=== PATIENT | male | born 1985 | race Caucasian/White ===

== ENCOUNTER 2022-02-14 21:04 | Emergency (ER) | payer OTHER, SELFPAY ==
[2022-02-14 21:04] VITALS: BP 156/113; PULSE 76; RESP 16; TEMP 36.3; O2SAT 97; BMI 32.1
--- NOTE | 2022-02-14 21:17 | CT_ITS ---
PROCEDURE INFORMATION: Exam: CT Lumbar Spine With Contrast Exam date and time: 02/14/2022 9:40 PM Age: 37 years old Clinical indication: Low back pain TECHNIQUE: Imaging protocol: Computed tomography of the lumbar spine with contrast. Radiation optimization: All CT scans at this facility use at least one of these dose optimization techniques: automated exposure control; mA and/or kV adjustment per patient size (includes targeted exams where dose is matched to clinical indication); or iterative reconstruction. Contrast material: ISOVUE; Contrast volume: 70 ml; Contrast route: IV; COMPARISON: CT THORACIC SPINE W CON 02/14/2022 9:35 PM FINDINGS: Bones/joints: At T11-12, a right paracentral broad-based disc and osteophyte complex measuring approximately 13 mm in anterior to posterior and 18 mm in transverse dimensions results in central spinal canal stenosis and right neural foraminal canal stenosis. No evidence of acute displaced cortical disruption or spondylolisthesis. Mild diffuse degenerative spondylosis, rotoscoliosis and facet arthropathy. Circumferential disc bulge, ligamentum flavum hypertrophy and degenerative facet arthropathy result in central spinal canal stenosis at L4-L5. Posterolateral disc and osteophyte complex and degenerative facet arthropathy result in bilateral foraminal stenosis at L5-S1. Mild anterior wedging of some of the lower thoracic vertebral bodies without evidence of fracture. Bilateral pars defects at L5-S1 without spondylolisthesis. Diaphragm: Small sliding hiatal hernia. Pancreas: Atrophic change of the otherwise unremarkable pancreas. Spleen: Punctate calcified granulomas within the spleen. Stomach and bowel: Diverticulosis of the sigmoid colon. No surrounding inflammation or fluid. Appendix: The appendix appears normal. Soft tissues: Unremarkable. Other findings: No pathologic enhancing lesion. IMPRESSION: 1. At T11-12, a right paracentral broad-based disc and osteophyte complex measuring approximately 13 mm in anterior to posterior and 18 mm in transverse dimensions results in central spinal canal stenosis and right neural foraminal canal stenosis. 2. Bilateral pars defects at L5-S1 without spondylolisthesis. These appear chronic. 3. Small sliding hiatal hernia. 4. Mild diffuse degenerative disc disease, rotoscoliosis and facet arthropathy. 5. Atrophic change of the otherwise unremarkable pancreas. 6. Punctate calcified granulomas within the spleen. 7. Diverticulosis of the sigmoid colon. No surrounding inflammation or fluid. 8. The appendix appears normal. 9. No pathologic enhancing lesion. 10. Circumferential disc bulge, ligamentum flavum hypertrophy and degenerative facet arthropathy result in central spinal canal stenosis at L4-L5. 11. Posterolateral disc and osteophyte complex and degenerative facet arthropathy result in bilateral foraminal stenosis at L5-S1. 12. Mild anterior wedging of some of the lower thoracic vertebral bodies without evidence of fracture.
--- NOTE | 2022-02-14 21:17 | CT_ITS ---
PROCEDURE INFORMATION: Exam: CT Thoracic Spine With Contrast Exam date and time: 02/14/2022 9:35 PM Age: 37 years old Clinical indication: Pain in thoracic spine; Other: Burning sensation TECHNIQUE: Imaging protocol: Computed tomography of the thoracic spine with contrast. Radiation optimization: All CT scans at this facility use at least one of these dose optimization techniques: automated exposure control; mA and/or kV adjustment per patient size (includes targeted exams where dose is matched to clinical indication); or iterative reconstruction. Contrast material: ISOVUE; Contrast volume: 70 ml; Contrast route: IV; COMPARISON: CT ABDOMEN PELVIS WO CON 02/14/2022 9:31 PM FINDINGS: Bones/joints: At T11-12, a right paracentral broad-based disc and osteophyte complex measuring approximately 13 mm in anterior to posterior and 18 mm in transverse dimensions results in central spinal canal stenosis and right neural foraminal canal stenosis. No evidence of acute displaced cortical disruption or spondylolisthesis. Mild diffuse degenerative spondylosis, rotoscoliosis and facet arthropathy. Soft tissues: Unremarkable. Lungs: Subcentimeter calcified granulomas of the pretracheal mediastinum, right hilum and right lung. IMPRESSION: 1. At T11-12, a right paracentral broad-based disc and osteophyte complex measuring approximately 13 mm in anterior to posterior and 18 mm in transverse dimensions results in central spinal canal stenosis and right neural foraminal canal stenosis. 2. No evidence of acute fracture or spondylolisthesis. 3. Mild diffuse degenerative disc disease, rotoscoliosis and facet arthropathy.
--- NOTE | 2022-02-14 21:17 | CT_ITS ---
PROCEDURE INFORMATION: Exam: CT Abdomen And Pelvis Without Contrast Exam date and time: 02/14/2022 9:31 PM Age: 37 years old Clinical indication: Abdominal pain; Generalized TECHNIQUE: Imaging protocol: Computed tomography of the abdomen and pelvis without contrast. Radiation optimization: All CT scans at this facility use at least one of these dose optimization techniques: automated exposure control; mA and/or kV adjustment per patient size (includes targeted exams where dose is matched to clinical indication); or iterative reconstruction. COMPARISON: No relevant prior studies available. FINDINGS: Diaphragm: Small sliding hiatal hernia. Liver: Normal. No mass. Gallbladder and bile ducts: Normal. No calcified stones. No ductal dilation. Pancreas: Atrophic change of the otherwise unremarkable pancreas. Spleen: Numerous punctate calcified granulomas within the otherwise unremarkable spleen. Adrenal glands: Normal. No mass. Kidneys and ureters: Normal. No hydronephrosis. Stomach and bowel: Diverticulosis of the sigmoid colon. No surrounding inflammation or fluid. Appendix: The appendix appears normal. Intraperitoneal space: Unremarkable. No free air. No significant fluid collection. Vasculature: Unremarkable. No abdominal aortic aneurysm. Lymph nodes: Abnormal mucosal thickening within loops of proximal jejunum which could be due to nondistention with differential to include enteritis, autoimmune related inflammatory bowel disease and neoplasm such as lymphoma. Follow-up with small-bowel series. Urinary bladder: Unremarkable as visualized. Reproductive: Unremarkable as visualized. Bones/joints: Degenerative spondylosis, mild rotoscoliosis and facet arthropathy within the spine. Osteophytosis and eburnation of the sacroiliac joints and hips. Bilateral pars defects at L5-S1 without spondylolisthesis. At T11-12, a right paracentral broad-based disc and osteophyte complex measuring approximately 13 mm in anterior to posterior and 18 mm in transverse dimensions results in central spinal canal stenosis and right neural foraminal canal stenosis. Soft tissues: Unremarkable. IMPRESSION: 1. Small sliding hiatal hernia. 2. Abnormal mucosal thickening within loops of proximal jejunum which could be due to nondistention with differential to include enteritis, autoimmune related inflammatory bowel disease and neoplasm such as lymphoma. Follow-up with small-bowel series. 3. Numerous punctate calcified granulomas within the otherwise unremarkable spleen. 4. Atrophic change of the otherwise unremarkable pancreas. 5. The appendix appears normal. 6. Diverticulosis of the sigmoid colon. No surrounding inflammation or fluid. 7. Bilateral pars defects at L5-S1 without spondylolisthesis. 8. At T11-12, a right paracentral broad-based disc and osteophyte complex measuring approximately 13 mm in anterior to posterior and 18 mm in transverse dimensions results in central spinal canal stenosis and right neural foraminal canal stenosis.
[2022-02-14 21:24] LABS: Microscopic, Urine URINE MICROSCOPIC (MICROSCOPIC)
[2022-02-14 21:26] LABS: Appearance,Urine CLEAR (Clear); Bilirubin,Urine Negative (Negative); Blood, Urine Negative (Negative); Color,Urine YELLOW (Yellow); Glucose,Urine (UA) Negative (Negative); Ketones,Urine Negative (Negative); Leukocyte Esterase,Urine Negative (Negative); Nitrate,Urine Negative (Negative); PH,Urine 6.5 (5.0-8.5); Protein,Urine TRACE (Negative); Specific Gravity, Urine 1.025 (1.005-1.030)
--- NOTE | 2022-02-14 21:31 | [facility].EDABDPAI ---
Discharge Plan Disposition Patient Disposition: Home, Self-Care Prescriptions Prescriptions: New prednisone [prednisone] 20 mg tablet 20 mg PO BID Qty: 10 0RF Referrals Follow up/Referrals: Yvan Trinidad MD [Staff Physician] - See instructions Provider,MD Mathieu [Primary Care Provider] - See instructions Clinical Impressions Clinical Impression: Radicular pain of thoracic region, Lumbar radicular pain Instructions Patient Instructions: DI for Lumbar Radiculopathy Discharge ED Provider: Talat Mcintyre Abdominal Pain HPI General Chief Complaint: Abdominal Pain Stated Complaint: abd/back pain Time Seen by Provider: 02/14/22 21:31 Mode of Arrival: Ambulatory Source of Information: Patient, Significant Other and Medical Record Limitations: No Limitations Description of Symptoms (Recalled from ER Triage Doc. by RN): pt c/o LLQ pain radiating to back x several months on and off History of Present Illness HPI narrative: lt sided back pain with rad to ant abd and no fever/rash or trauma - no iv drug use Related Data Previous Rx's Medication Instructions Recorded prednisone 20 mg tablet 20 mg PO BID #10 tabs 02/14/22 Allergies Allergy/AdvReac Type Severity Reaction Status Date / Time MORPHINE Allergy Unknown Uncoded 04/16/17 14:45 SULFA (SULFONAMIDE) Allergy Unknown Uncoded 04/16/17 14:45 PFSH PFSH Social History Smoking Status: Never smoker alcohol intake: never current occupational status: unemployed Travel in the last 8 weeks: None ROS Obtained: Yes All systems reviewed & no additional complaints except as documented Physical Exam General General appearance: alert Head Head exam: normocephalic Eye Eye exam: Present PERRL and EOMI ENT ENT exam: Present mucous membranes moist Neck Neck exam: Present trachea midline Respiratory Respiratory exam: Present normal lung sounds bilaterally; Absent respiratory distress Cardiovascular Cardiovascular exam: Present regular rate; Absent systolic murmur Abdominal Exam Abdominal exam: Present soft and tenderness Abdominal tenderness: Present LUQ and moderate Extremities Exam Extremities exam: Present normal inspection Back Exam Back exam: Present paraspinal tenderness; Absent CVA tenderness (L) Neurological Exam Neurological exam: Present alert, oriented X3 and CN II-XII intact; Absent motor sensory deficit Psychiatric Psychiatric exam: Present normal affect Skin Skin exam: Absent rash Medical Decision Making Medical Records Medical records reviewed: Yes I reviewed the patient's medical records. Andrew Inquiry Pt receiving controlled substance: No Vital Signs: 02/14/22 21:04 02/14/22 22:29 Temperature 97.4 F L 97.4 F L Temperature Source Oral Oral Pulse Rate 70 Pulse Rate [Right] 76 Respiratory Rate 16 16 Blood Pressure 147/87 H Blood Pressure [Right Arm] 156/113 H Blood Pressure Mean [Right Arm] 127 02 Sat by Pulse Oximetry 97 Lab Data Lab results reviewed: Yes I reviewed the patient's lab results. Lab Results 02/14/22 21:09: Urine Color Yellow, Urine Appearance Clear, Urine pH 6.5, Ur Specific [place] 1.025, Urine Protein Trace, Urine Glucose (UA) Negative, Urine Ketones Negative, Urine Blood Negative, Urine Nitrate Negative, Urine Bilirubin Negative, Urine Urobilinogen 1.0, Ur Leukocyte Esterase Negative, Urine RBC Occasional, Urine WBC Occasional, Ur Squamous Epith Cells Occasional, Urine Bacteria Trace, Urine Mucus 2+ 02/14/22 21:32: WBC 6.8, RBC 5.27, Hgb 16.1, Hct 49.2, MCV 93.4, MCH 30.6, MCHC 32.7, RDW 13.8, Plt Count 241, MPV 7.4, Neut % (Auto) 47.7, Lymph % (Auto) 42.8, [place] % (Auto) 4.6, Eos % (Auto) 3.9, Baso % (Auto) 1.0, Neut # (Auto) 3.3, Lymph # (Auto) 2.9, [place] # (Auto) 0.3, Eos # (Auto) 0.3, Baso # (Auto) 0.1, ESR 4 02/14/22 21:32: Sodium 140, Potassium 4.9, Chloride 101, Carbon Dioxide 32 H, Anion Gap 11.9, BUN 20, Creatinine 1.20, Estimated Creat Clear 135, Estimated GFR 68, Est GFR ( Am
[2022-02-14 21:41] LABS: Basophils # 0.1 K/mm3 (0-0.2); Eosinophils # 0.3 K/mm3 (0.0-0.4); Eosinophils % 3.9 % (0.1-12.0); Hematocrit 49.2 % (42.0-52.0); Hemoglobin 16.1 g/dL (14.1-18.0); Lymphocytes # 2.9 K/mm3 (0.7-4.5); Lymphocytes % 42.8 % (10-50); Mean Corpuscular HGB Conc 32.7 g/dL (31.8-35.4); Mean Corpuscular Hemoglobin 30.6 pg (27.0-31.2); Mean Corpuscular Volume 93.4 fl (80-94); Mean Platelet Volume 7.4 fl (7.4-10.4); Monocytes # 0.3 K/mm3 (0.1-1.0); Monocytes % 4.6 % (1.7-9.3); Neutrophils # 3.3 K/mm3 (1.8-7.8); Neutrophils % 47.7 % (37.0-80.0); Platelet Count 241 K/mm3 (142-424); Red Blood Count 5.27 M/mm3 (4.60-6.20); Red Cell Distribution Width 13.8 % (11.5-17.5); White Blood Count 6.8 K/mm3 (4.8-10.8)
[2022-02-14 21:42] LABS: Bacteria,Urine Trace /lpf; Mucus,Urine 2+ /lpf; RBC,Urine Occasional #/hpf (0-3); Squamous Epithelial Cell,Urine Occasional #/hpf (0-5); WBC,Urine Occasional #/hpf (0-3)
[2022-02-14 21:52] LABS: Chloride 101 mmol/L (98-107); Potassium 4.9 mmoL/L (3.5-5.1); Sodium 140 mmol/L (136-145)
[2022-02-14 21:55] LABS: Alanine Aminotransferase 162 U/L (12-78); Albumin/Globulin Ratio 1.3 (1.1-1.8); Alkaline Phosphatase 80 U/L (38-126); Anion Gap 11.9 mEq/L (5-15); Aspartate Amino Transferase 118 U/L (17-59); Bilirubin,Total 0.5 mg/dl (0.2-1.3); Blood Urea Nitrogen 20 mg/dl (9-20); Carbon Dioxide 32 mmol/L (22.0-30.0); Creatinine Clearance Estimated 135 mL/min (50-200); Estimated Glomerular Filt Rate 68 ml/min (>60); GFR (African American) 82 ML/MIN (>60); Globulin 3.1 g/dL (1.3-3.2); Total Protein,Serum 7.1 g/dl (6.3-8.2)
[2022-02-14 21:56] LABS: Calcium 8.8 mg/dl (8.4-10.2); Glucose 110 mg/dl (74-100)
[2022-02-14 22:01] LABS: C-Reactive Protein 0.8 mg/L (0-4)
[2022-02-14 22:29] VITALS: BP 147/87; PULSE 70; RESP 16; TEMP 36.3; O2SAT 97
[2022-02-14 22:32] LABS: Erythrocyte Sedimentation Rate 4 mm/hr (0-15)
[2022-02-14 22:45] LABS: Procalcitonin 0.098 ng/mL (0.0-2.0)
== END 2022-02-14 22:55 | disposition home or self-care (01) ==
PROVIDERS: Emergency Provider Emergency Medicine
DX: M54.14 Radiculopathy, thoracic region (principal); M54.16 Radiculopathy, lumbar region; Z88.2 Allergy status to sulfonamides; Z88.5 Allergy status to narcotic agent
CPT/HCPCS: 72129; 72132; 74176; 80053; 81001; 84145; 85025; 85651; 86140; 96374; 96375; 99285; Q9967

== ENCOUNTER → 2022-03-09 03:15 | Outpatient (CLI) | payer OTHER, SELFPAY ==
[2022-03-09 18:21] LABS: Alanine Aminotransferase 102 U/L (12-78); Albumin Level 4.5 g/dl (3.5-5.0); Albumin/Globulin Ratio 1.5 (1.1-1.8); Alkaline Phosphatase 90 U/L (38-126); Anion Gap 16.7 mEq/L (5-15); Aspartate Amino Transferase 74 U/L (17-59); Basophils % 0.8 % (0.1-2.0); Bilirubin,Total 0.5 mg/dl (0.2-1.3); Blood Urea Nitrogen 17 mg/dl (9-20); Calcium 9.7 mg/dl (8.4-10.2); Carbon Dioxide 28 mmol/L (22.0-30.0); Chloride 102 mmol/L (98-107); Eosinophils # 0.2 K/mm3 (0.0-0.4); Eosinophils % 2.7 % (0.1-12.0); Estimated Glomerular Filt Rate 68 ml/min (>60); GFR (African American) 82 ML/MIN (>60); Glucose 93 mg/dl (74-100); Hematocrit 47.5 % (42.0-52.0); Hemoglobin 15.9 g/dL (14.1-18.0); Lymphocytes # 2.5 K/mm3 (0.7-4.5); Lymphocytes % 43.5 % (10-50); Mean Corpuscular HGB Conc 33.4 g/dL (31.8-35.4); Mean Corpuscular Hemoglobin 31.1 pg (27.0-31.2); Mean Corpuscular Volume 93.1 fl (80-94); Mean Platelet Volume 8.7 fl (7.4-10.4); Monocytes # 0.3 K/mm3 (0.1-1.0); Monocytes % 5.4 % (1.7-9.3); Neutrophils # 2.7 K/mm3 (1.8-7.8); Neutrophils % 47.6 % (37.0-80.0); Platelet Count 281 K/mm3 (142-424); Potassium 4.7 mmoL/L (3.5-5.1); Red Cell Distribution Width 13.9 % (11.5-17.5); Sodium 142 mmol/L (136-145); Total Protein,Serum 7.5 g/dl (6.3-8.2); White Blood Count 5.7 K/mm3 (4.8-10.8)
[2022-03-09 18:51] LABS: Prostate Specific Ag Screen 0.8 ng/ml (0.0-4.0)
[2022-03-13 03:46] LABS: ALT (SGPT) P5P 112 IU/L (0-55); Alpha 2-Macroglobulins, Qn 148 mg/dL (110-276); Apolipoprotein A-1 174 mg/dL (101-178); Bilirubin, Total 0.3 mg/dL (0.0-1.2); Fibrosis Score 0.08 (0.00-0.21); GGT 52 IU/L (0-65); Haptoglobin 97 mg/dL (17-317); Necroinflammat Activity Grade A2-Moderate activity (.); Necroinflammat Activity Score 0.53 (0.00-0.17)
[2022-03-14 19:12] LABS: HCV Genotype Charge YES; Hepatitis C Genotype 1a (.)
[2022-03-31 23:40] LABS: HIV Screen 4th Generation wRfx Non Reactive; Hep A Ab, Total Negative
[2022-03-31 23:41] LABS: Hepatitis B Surface Antigen Reactive
[2022-03-31 23:42] LABS: Hep B Core Ab, Total Positive; Hep B Surface Ab, Qual Negative; Hepatitis C Antibody >11.0
== END ==
PROVIDERS: PCP Nurse Practitioner Family; Visit Provider Nurse Practitioner Family
DX: B18.2 Chronic viral hepatitis C (principal); I10 Essential (primary) hypertension; Z11.4 Encounter for screening for human immunodeficiency virus [HIV]; Z12.5 Encounter for screening for malignant neoplasm of prostate
CPT/HCPCS: 80053; 81596; 85025; 86703; 86704; 86706; 86708; 87340; 87380; 87522; 87902; G0103; G0432

== ENCOUNTER 2022-04-29 13:34 | Emergency (ER) | payer OTHER, SELFPAY ==
--- NOTE | 2022-04-29 14:50 | XR_ITS ---
PROCEDURE INFORMATION: Exam: XR Left Foot Exam date and time: 04/29/2022 2:58 PM Age: 37 years old Clinical indication: Patient HX: Left lateral foot pain, redness and swelling. ; Additional info: Possible foreign body TECHNIQUE: Imaging protocol: Radiologic exam of the Left foot. Views: 3 or more views. COMPARISON: No relevant prior studies available. FINDINGS: Bones/joints: Normal. Soft tissues: Soft tissue swelling superficial to the 5th metatarsal. No evidence of a radiopaque foreign body. IMPRESSION: 1. No evidence of a radiopaque foreign body. 2. No evidence of acute osseous injury. 3. Soft tissue swelling superficial to the 5th metatarsal.
--- NOTE | 2022-04-29 15:31 | EXP.UTC ---
Discharge Plan Disposition Patient Disposition: Home, Self-Care Condition: Good Prescriptions Prescriptions: New ciprofloxacin HCl [Cipro] 500 mg tablet 500 mg PO BID 10 Days Qty: 20 0RF cephalexin 500 mg capsule 500 mg PO QID Qty: 40 0RF mupirocin 2 % ointment 1 applic topical TID 7 Days Qty: 15 0RF ibuprofen [IBU] 800 mg tablet 800 mg PO Q8HP PRN (Reason: Moderate Pain) Qty: 30 0RF Referrals Follow up/Referrals: Provider,Referral, MD [Primary Care Provider] - See instructions Activity Restrictions/Add. Instructions Additional Instructions/Restrictions: Rest the extremity, Elevate the extremity as tolerated while you are resting. Take ibuprofen for pain. I sent in a prescription to your pharmacy. Follow up with Dr. Tripp (podiatry). Sometimes there can be fractures that don't show up well on the first set of x-rays. So, you should follow up if you continue to have symptoms. I put in a referral but you need to call her office and schedule an appointment. Follow up with your regular doctor. GO TO THE ER FOR ANY WORSENING SYMPTOMS Clinical Impressions Clinical Impression: Foreign body in foot, Puncture wound of foot, left Instructions Patient Instructions: DI for Cellulitis -- Adult, Cellulitis, DI for Puncture Wound Discharge ED Provider: Ghanshyam Wooten [facility] General Stated complaint: Left side of foot pain Time Seen by Provider: 04/29/22 15:31 History of Present Illness Provider Complaint: He states that around 2 weeks ago he stepped on a thorn naylor and got a thorn in the side of his left foot. He did get at least some of it out, but he was never sure he got all of it out. Since then he has had pain, swelling and drainage from that site. He is not a diabetic. He denies any fever or chills. Related Data Previous Rx's Medication Instructions Recorded cephalexin 500 mg capsule 500 mg PO QID #40 caps 04/29/22 ciprofloxacin HCl 500 mg tablet 500 mg PO BID 10 days #20 tabs 04/29/22 (Cipro) ibuprofen 800 mg tablet (IBU) 800 mg PO Q8HP PRN Moderate Pain 04/29/22 #30 tabs mupirocin 2 % topical ointment 1 applic topical TID 7 days #15 04/29/22 grams Allergies Allergy/AdvReac Type Severity Reaction Status Date / Time morphine Allergy Verified 04/29/22 16:03 Sulfa (Sulfonamide Allergy Verified 04/29/22 16:03 Antibiotics) [facility] Disclaimer: The information contained in this section may have been updated after the patient was seen, as this information can be updated by other users. Social History Smoking Status: Never smoker alcohol intake: never current occupational status: unemployed Travel in the last 8 weeks: None ROS Obtained: Yes All systems reviewed & no additional complaints except as documented Constitutional Constitutional: Denies chills and Denies fever(s) Eyes Eyes: Denies eye discharge ENT Ears, Nose, Mouth, and Throat: Denies dizziness, Denies otalgia and Denies sore throat Cardiovascular Cardiovascular: Denies chest pain Respiratory Respiratory: Denies shortness of breath, Denies chest congestion, Denies cough, Denies stridor and Denies wheezing Gastrointestinal Gastrointestingal: Denies nausea or vomiting Musculoskeletal Musculoskeletal: Denies arthralgias Integumentary/Breasts Skin/Breast: Reports as per HPI Neurologic Neurologic: Denies dizziness and Denies paresthesias Allergic/Immunologic Allergic/Immunologic: Denies wheezing Physical Exam General General appearance: alert and in no apparent distress Head Head exam: atraumatic, normocephalic and normal inspection Eye Eye exam: Present normal appearance, PERRL and EOMI ENT ENT exam: Present normal exam, normal oropharynx, mucous membranes moist, TM's normal bilaterally and normal external ear exam Neck Neck exam: Present normal inspection, full ROM and trachea midline; Absent meningismus or lymphadenopathy
[2022-04-29 15:40] VITALS: BP 148/54; PULSE 98; RESP 20; TEMP 36.7; O2SAT 97; BMI 47.5
[2022-04-29 17:06] VITALS: BP 148/54; PULSE 98; RESP 20; TEMP 36.7; O2SAT 97
== END 2022-04-29 17:13 | disposition home or self-care (01) ==
PROVIDERS: Emergency Provider Emergency Medicine
DX: S91.332A Puncture wound without foreign body, left foot, initial encounter (principal); B96.1 Klebsiella pneumoniae [K. pneumoniae] as the cause of diseases classified elsewhere; B96.20 Unspecified Escherichia coli [E. coli] as the cause of diseases classified elsewhere; Z16.11 Resistance to penicillins; Z16.39 Resistance to other specified antimicrobial drug
CPT/HCPCS: 28190; 73630; 87070; 87077; 87186; 87205; 99213; 99214; G0463; J0696

== ENCOUNTER → 2022-05-07 09:35 | Outpatient (CLI) | payer OTHER, SELFPAY ==
[2022-05-07 10:06] LABS: Basophils # 0.1 K/mm3 (0-0.2); Eosinophils # 0.2 K/mm3 (0.0-0.4); Eosinophils % 3.1 % (0.1-12.0); Hematocrit 50.1 % (42.0-52.0); Hemoglobin 15.9 g/dL (14.1-18.0); Lymphocytes # 2.6 K/mm3 (0.7-4.5); Lymphocytes % 40.7 % (10-50); Mean Corpuscular HGB Conc 31.8 g/dL (31.8-35.4); Mean Corpuscular Hemoglobin 30.5 pg (27.0-31.2); Mean Corpuscular Volume 95.9 fl (80-94); Mean Platelet Volume 7.7 fl (7.4-10.4); Monocytes # 0.3 K/mm3 (0.1-1.0); Monocytes % 4.7 % (1.7-9.3); Neutrophils # 3.3 K/mm3 (1.8-7.8); Neutrophils % 50.5 % (37.0-80.0); Platelet Count 286 K/mm3 (142-424); Red Blood Count 5.23 M/mm3 (4.60-6.20); Red Cell Distribution Width 13.5 % (11.5-17.5); White Blood Count 6.5 K/mm3 (4.8-10.8)
[2022-05-07 10:43] LABS: Alanine Aminotransferase 70 U/L (12-78); Albumin Level 4.1 g/dl (3.5-5.0); Albumin/Globulin Ratio 1.3 (1.1-1.8); Alkaline Phosphatase 51 U/L (38-126); Anion Gap 9.6 mEq/L (5-15); Aspartate Amino Transferase 56 U/L (17-59); Bilirubin,Total 0.6 mg/dl (0.2-1.3); Blood Urea Nitrogen 14 mg/dl (9-20); Calcium 8.9 mg/dl (8.4-10.2); Carbon Dioxide 28 mmol/L (22.0-30.0); Chloride 106 mmol/L (98-107); Estimated Glomerular Filt Rate 75 ml/min (>60); GFR (African American) 91 ML/MIN (>60); Globulin 3.1 g/dL (1.3-3.2); Glucose 91 mg/dl (74-100); Potassium 4.6 mmoL/L (3.5-5.1); Sodium 139 mmol/L (136-145); Total Protein,Serum 7.2 g/dl (6.3-8.2)
[2022-05-07 10:48] LABS: C-Reactive Protein 0.6 mg/L (0-4)
== END ==
PROVIDERS: Visit Provider Nurse Practitioner Family
DX: S90.852A Superficial foreign body, left foot, initial encounter (principal); B95.7 Other staphylococcus as the cause of diseases classified elsewhere
CPT/HCPCS: 36415; 80053; 85025; 86140; 87070; 87077; 87186; 87205

== ENCOUNTER 2025-01-03 20:06 | Emergency (ER) | payer OTHER, SELFPAY ==
--- NOTE | 2025-01-03 20:15 | XR_ITS ---
PROCEDURE INFORMATION: Exam: XR Chest Exam date and time: 01/03/2025 8:20 PM Age: 39 years old Clinical indication: Pain; Left-sided; Additional info: Cp TECHNIQUE: Imaging protocol: Radiologic exam of the chest. Views: 1 view. COMPARISON: CT THORACIC SPINE W CON 02/14/2022 9:35 PM FINDINGS: Lungs: See Soft tissues finding. Pleural spaces: Unremarkable. No pleural effusion. No pneumothorax. Heart/Mediastinum: Unremarkable. No cardiomegaly. Bones/joints: Osseous structures appear normal. Soft tissues: Single view of the chest. No acute airspace pattern infiltrates IMPRESSION: Negative single-view chest.
--- NOTE | 2025-01-03 20:16 | ECG_ITS ---
APPROVED REPORT Exam: Resting ECG HR:73 bpm ECG Measurements Heart Rate 73 AXES DE 164 P 54 QRSd 85 QRS 49 QT 362 T 17 QTc 388 Conclusion SINUS RHYTHM NORMAL ECG UNCONFIRMED REPORT Electronically signed by : JAY HARRINGTON, 01/04/2025 23:03:23
[2025-01-03 20:20] VITALS: BP 177/11; PULSE 75; RESP 19; TEMP 36.6; O2SAT 100; BMI 33.6
[2025-01-03 20:21] LABS: Hematocrit 39.0 % (42.0-52.0); Hemoglobin 13.4 g/dL (14.1-18.0); Immature Granulocytes % 0.2 %; Mean Corpuscular HGB Conc 34.4 g/dL (31.8-35.4); Mean Corpuscular Hemoglobin 30.5 pg (27.0-31.2); Mean Corpuscular Volume 88.6 fl (80-94); Nucleated Red Blood Cells % 0 %; Platelet Count 238 K/mm3 (142-424); Red Blood Count 4.40 M/mm3 (4.60-6.20); Red Cell Distribution Width-SD 40.3 fL; White Blood Count 4.9 K/mm3 (4.8-10.8)
[2025-01-03 20:26] LABS: Albumin Level 4.2 g/dl (3.5-5.0); Chloride 108 mmol/L (98-107); Potassium 4.0 mmoL/L (3.5-5.1); Sodium 141 mmol/L (136-145)
[2025-01-03 20:29] LABS: Alanine Aminotransferase 18 U/L (12-78); Albumin/Globulin Ratio 1.4 (1.1-1.8); Alkaline Phosphatase 61 U/L (38-126); Anion Gap 9.0 mEq/L (5-15); Aspartate Amino Transferase 36 U/L (17-59); Bilirubin,Total 0.3 mg/dl (0.2-1.3); Blood Urea Nitrogen 19 mg/dl (9-20); Calcium 9.5 mg/dl (8.4-10.2); Carbon Dioxide 28 mmol/L (22.0-30.0); Creatinine,Serum 1.10 mg/dl (0.66-1.25); Estimated Glomerular Filt Rate 75 ml/min (>60); GFR (African American) 90 ML/MIN (>60); Globulin 2.9 g/dL (1.3-3.2); Glucose 92 mg/dl (74-100); Total Protein,Serum 7.1 g/dl (6.3-8.2)
[2025-01-03 20:42] LABS: Troponin I < 0.01 ng/ml (0.00-0.034)
--- NOTE | 2025-01-03 21:13 | ED_ITS ---
<Statement entered by Lorri Son DO - 01/04/25 19:01> I was consulted by the LAL[facility], and we discussed the complexity of problems being addressed. I approve the treatment and management plan for this patient's care in the emergency department, thus performing a substantial portion of the medical decision making. Lorri Son DO Discharge Plan Disposition Patient Disposition: Home, Self-Care Condition: Good Prescriptions Prescriptions: New famotidine [Pepcid] 20 mg tablet 20 mg PO BID 49 Days Qty: 98 0RF No Action sofosbuvir-velpatasvir 400-100 mg tablet 1 tab PO DAILY Patient Comments: TAKE 1 TABLET BY MOUTH EVERY DAY FOR 12 WEEKS Vraylar 1.5 mg capsule 1.5 mg PO DAILY Qty: 30 2RF Referrals Follow up/Referrals: Demetri Ace APRN [Primary Care Provider, Family Practice] - See instructions Alfredo Doll DO [Staff Physician, Family Practice] - See instructions Activity Restrictions/Add. Instructions Additional Instructions/Restrictions: Today you were evaluated in the emergency for chest pain. You were given a GI cocktail which helped with your chest pain. Please take the medication I prescribed, decrease soda, fatty foods, caffeine, sugar filled drinks. If you are unable to obtain an appointment with your PCP, please call the number listed above for primary care appointment. Your blood pressure was elevated during today's visit, please discuss this with your primary care provider. Please return to the ED for any worsening or change of your condition. Clinical Impressions Clinical Impression: Chest pain, Acid reflux Instructions Patient Instructions: DI for Heartburn, DI for Atypical Chest Pain Print Language Print Language: [place] Discharge ED Provider: Lorri Son HPI <Rosa Isela Carl APRN - Last Filed: 01/03/25 21:31> General Chief Complaint: Chest Pain Stated Complaint: burning in chest,left shoulder numbness Time Seen by Provider: 01/03/25 20:10 Mode of Arrival: Ambulatory Source of Information: Patient Description of Symptoms (Recalled from ER Triage Doc. by RN): Pt presents to ED for chest discomfort/burning X 5 days. Pt states he also feels pain in his L shoulder and has had a few bouts of nausea. Pt is A&O*4 and has no pain at this time. EKG performed and IV access established. History of Present Illness HPI narrative: Patient is a 39-year-old male PMHx hep C, anxiety, depression, substance abuse (Suboxone ), current STD (on antibiotics) who presents to the ED for centrally located chest pain, intermittent, x 4 to 5 days. Patient describes his chest pain as a burning pain. He has not had anything for pain prior to arrival. Patient denies any personal cardiac history, reports that his dad had an [place] over the age of 50. Patient states that today he felt nauseated after starting his antibiotics. Related Data Home Medications ?Medication ?Instructions ?Recorded ?Confirmed sofosbuvir 400 mg-velpatasvir 100 1 tab PO DAILY 06/2206/22/22 mg tablet Previous Rx's ?Medication ?Instructions ?Recorded cariprazine 1.5 mg capsule 1.5 mg PO DAILY #30 caps (Vraylar) famotidine 20 mg tablet (Pepcid) 20 mg PO BID 7 weeks #98 tabs 01/03/25 Allergies Allergy/AdvReac Type Severity Reaction Status Date / Time morphine Allergy Verified 06/22/22 14:25 Sulfa (Sulfonamide Allergy Verified 06/22/22 14:25 Antibiotics) [facility] <Rosa Isela Carl APRN - Last Filed: 01/03/25 21:31> [facility] Disclaimer: The information contained in this section may have been updated after the patient was seen, as this information can be updated by other users. Medical History (Updated 01/03/25 @ 21:30 by Rosa Isela Carl APRN) Hep C w/o coma, chronic Surgical History (Updated 06/22/22 @ 14:33 by KALEY Jerome) H/O knee surgery Social History Smoking Status: Current every day smoker alcohol intake: never current occupational status: unemployed Travel in the last 8 weeks?: None Have you lived/traveled outside [place] in past 30 days?: No Contact w/someone who lives/traveled outside [place] past 30 days?: No Exposure to someone with infectious disease in past 14 days?: No Do you have a fever (greater than 100.4 F or 38 C)?: No Have you tested positive for COVID-19?: No Exposed to someone with COVID-19 in past 14 days?: No Do you have a sore throat?: No Do you have a cough?: No Do you have any weakness?: No Do you have any diarrhea?: No Are you experiencing any unusual bleeding?: No Do you have any muscle aches/pain?: No Do you have any abdominal pain?: No Are you experiencing loss of taste or smell?: No <Rosa Isela Carl APRN - Last Filed: 01/03/25 21:31> ROS Obtained: Yes Systems reviewed as appropriate & no additional complaints except as documented Physical Exam <Rosa Isela Carl APRN - Last Filed: 01/03/25 21:31> General General appearance: alert and in no apparent distress Head Head exam: atraumatic Eye Eye exam: Present normal appearance and PERRL ENT ENT exam: Present normal exam Neck Neck exam: Present full ROM Chest Chest inspection: Present normal inspection and symmetric chest wall rise; Absent tenderness or rash Respiratory Respiratory exam: Present normal lung sounds bilaterally Cardiovascular Cardiovascular exam: Present regular rate Abdominal Exam Abdominal exam: Present soft Back Exam Back exam: Present full ROM Neurological Exam Neurological exam: Present alert and oriented X3 Psychiatric Psychiatric exam: Present normal affect Skin Skin exam: Present warm and dry HEART Score <Rosa Isela Carl APRN - Last Filed: 01/03/25 21:31> HEART Score HEART Score assessment performed?: Yes History (anamnesis): Slightly suspicious ECG: Normal Age: <45 years Risk factors: 1-2 risk factors Troponin: </= normal limit HEART Score: 1 <Lorri Son DO - Last Filed: 01/04/25 19:01> HEART Score HEART Score: 1 Critical Care <Rosa Isela Carl APRN - Last Filed: 01/03/25 21:31> Critical Care Time Critical Care Time: No Medical Decision Making <Rosa Isela Carl APRN - Last Filed: 01/03/25 21:31> Andrew Inquiry Pt receiving controlled substance: No Vital Signs Vital Signs: 01/03/25 20:20 01/03/25 21:32 01/03/25 21:34 Temperature 97.9 F 98.6 F Temperature Source Oral Oral Pulse Rate 80 80 Pulse Rate [Left] 75 Respiratory Rate 19 18 Blood Pressure 156/90 H Blood Pressure [Right Arm] 177/11 H Blood Pressure Mean [Right Arm] 66 Blood Pressure Source Automatic Cuff Blood Pressure Position Sitting 02 Sat by Pulse Oximetry 100 Oxygen Delivery Method Room Air Room Air Lab Data Labs: Lab Results 01/03/25 20:14: WBC 4.9, RBC 4.40 L, Hgb 13.4 L, Hct 39.0 L, MCV 88.6, MCH 30.5, MCHC 34.4, RDW 12.3, Plt Count 238, MPV 9.1, Neut % (Auto) 49.0, Lymph % (Auto) 37.5, [place] % (Auto) 8.6, Eos % (Auto) 4.3, Baso % (Auto) 0.4, Neut # (Auto) 2.4, Lymph # (Auto) 1.8, [place] # (Auto) 0.4, Eos # (Auto) 0.2, Baso # (Auto) 0.0, Sodium 141, Potassium 4.0, Chloride 108 H, Carbon Dioxide 28, Anion Gap 9.0, BUN 19, Creatinine 1.10, Estimated GFR 75, Est GFR ( Amer) 90, Glucose 92, Calcium 9.5, Total Bilirubin 0.3, AST 36, ALT 18, Alkaline Phosphatase 61, Troponin I < 0.01, Total Protein 7.1, Albumin 4.2, Globulin 2.9, Albumin/Globulin Ratio 1.4 01/03/25 20:14 01/03/25 20:14 Response Orders (Tests/Meds): ED MEDICATIONS Discontinued Medications Generic Name Dose Route Start Last Admin Trade Name Freq PRN Reason Stop Dose Admin Belladonna Alkaloids 60 ml 01/03/25 21:14 01/03/25 21:17 Belladonna Alkaloids 60 Ml Ml PO 01/03/25 21:15 60 ml ONCE ONE Administration ORDERS Category Date Time Status CXR --portable [XR chest portable] Stat Exams 01/03/25 20:15 Completed CBC w/Auto Diff [Complete Blood Count Auto Diff] Stat Lab 01/03/25 20:14 Completed CMP [Comprehensive Metabolic Panel] Stat Lab 01/03/25 20:14 Completed Trop I [Troponin I] Stat Lab 01/03/25 20:14 Completed MDM Narrative Medical Decision Narrative: In summary, patient is a 39-year-old male PMHx hep C, anxiety, depression, substance abuse (Suboxone ), current STD (on antibiotics) who presents to the ED for centrally located chest pain, intermittent, x 4 to 5 days. Patient describes his chest pain as a burning pain. He has not had anything for pain prior to arrival. Patient denies any personal cardiac history, reports that his dad had an [place] over the age of 50. Patient states that today he felt nauseated after starting his antibiotics. Denies initial complaints at this time. Upon initial evaluation patient is alert, oriented and cooperative. He has elevated blood pressure, states his blood pressure has been elevated for a long time, he is not on antihypertensive. No chest wall tenderness. Differential diagnosis include ACS, dissection, pneumonia, pneumothorax, atypical chest pain, viral syndrome, bacterial infection, among others. CBC unremarkable for any leukocytosis, stable H&H. CMP overall unremarkable. First troponin < 0.01. I independently interpreted the chest x-ray as no acute findings. Upon reassessment, patient's chest pain has resolved after the GI cocktail. Patient states that he has been drinking Gatorade's and sodas. I discussed that he will need to stop drinking sodas and high sugar drinks as this could cause gastroesophageal reflux, causing chest pain symptoms. I also had an interactive discussion with him about elevated blood pressure. I advised him that if his blood pressure remains elevated, he will need to work on losing weight and possible antihypertensives. Patient states he recently was released from residential and thinks that his primary care provider will still see him, I advised him that I will place a follow-up on his discharge papers just in case. We discussed foods to avoid for reflux symptoms. Discussed other cardiac risk reduction. Advised that I will send him a medication to the pharmacy that he can try as well. Advised him to increase his fluid intake with water. We discussed very strict return precautions to the ED and patient verbalized understanding. <Lorri Son, DO - Last Filed: 01/04/25 19:01> Vital Signs Vital Signs: 01/03/25 20:20 01/03/25 21:32 01/03/25 21:34 Temperature 97.9 F 98.6 F Temperature Source Oral Oral Pulse Rate 80 80 Pulse Rate [Left] 75 Respiratory Rate 19 18 Blood Pressure 156/90 H Blood Pressure [Right Arm] 177/11 H Blood Pressure Mean [Right Arm] 66 Blood Pressure Source Automatic Cuff Blood Pressure Position Sitting 02 Sat by Pulse Oximetry 100 Oxygen Delivery Method Room Air Room Air Lab Data Labs: Lab Results 01/03/25 20:14: WBC 4.9, RBC 4.40 L, Hgb 13.4 L, Hct 39.0 L, MCV 88.6, MCH 30.5, MCHC 34.4, RDW 12.3, Plt Count 238, MPV 9.1, Neut % (Auto) 49.0, Lymph % (Auto) 37.5, [place] % (Auto) 8.6, Eos % (Auto) 4.3, Baso % (Auto) 0.4, Neut # (Auto) 2.4, Lymph # (Auto) 1.8, [place] # (Auto) 0.4, Eos # (Auto) 0.2, Baso # (Auto) 0.0, Sodium 141, Potassium 4.0, Chloride 108 H, Carbon Dioxide 28, Anion Gap 9.0, BUN 19, Creatinine 1.10, Estimated GFR 75, Est GFR ( Amer) 90, Glucose 92, Calcium 9.5, Total Bilirubin 0.3, AST 36, ALT 18, Alkaline Phosphatase 61, Troponin I < 0.01, Total Protein 7.1, Albumin 4.2, Globulin 2.9, Albumin/Globulin Ratio 1.4 Response Orders (Tests/Meds): ED MEDICATIONS Discontinued Medications Generic Name Dose Route Start Last Admin Trade Name Freq PRN Reason Stop Dose Admin Belladonna Alkaloids 60 ml 01/03/25 21:14 01/03/25 21:17 Belladonna Alkaloids 60 Ml Ml PO 01/03/25 21:15 60 ml ONCE ONE Administration ORDERS Category Date Time Status CXR --portable [XR chest portable] Stat Exams 01/03/25 20:15 Completed CBC w/Auto Diff [Complete Blood Count Auto Diff] Stat Lab 01/03/25 20:14 Completed CMP [Comprehensive Metabolic Panel] Stat Lab 01/03/25 20:14 Completed Trop I [Troponin I] Stat Lab 01/03/25 20:14 Completed MDM Narrative Medical Decision Narrative: In summary, patient is a 39-year-old male PMHx hep C, anxiety, depression, substance abuse (Suboxone ), current STD (on antibiotics) who presents to the ED for centrally located chest pain, intermittent, x 4 to 5 days. Patient describes his chest pain as a burning pain. He has not had anything for pain prior to arrival. Patient denies any personal cardiac history, reports that his dad had an [place] over the age of 50. Patient states that today he felt nauseated after starting his antibiotics. Denies initial complaints at this time. Upon initial evaluation patient is alert, oriented and cooperative. He has elevated blood pressure, states his blood pressure has been elevated for a long time, he is not on antihypertensive. No chest wall tenderness. Differential diagnosis include ACS, pneumonia, pneumothorax, atypical chest pain, viral syndrome, bacterial infection, among others. CBC unremarkable for any leukocytosis, stable H&H. CMP overall unremarkable. First troponin < 0.01, second troponin not indicated given more than 6 hours of chest pain. I independently interpreted the chest x-ray as no acute findings. Upon reassessment, patient's chest pain has resolved after the GI cocktail. Patient states that he has been drinking Gatorade's and sodas. I discussed that he will need to stop drinking sodas and high sugar drinks as this could cause gastroesophageal reflux, causing chest pain symptoms. I also had an interactive discussion with him about elevated blood pressure. I advised him that if his blood pressure remains elevated, he will need to work on losing weight and possible antihypertensives. Patient states he recently was released from residential and thinks that his primary care provider will still see him, I advised him that I will place a follow-up on his discharge papers just in case. We discussed foods to avoid for reflux symptoms. Discussed other cardiac risk reduction. Advised that I will send him a medication to the pharmacy that he can try as well. Advised him to increase his fluid intake with water. We discussed very strict return precautions to the ED and patient verbalized understanding.
[2025-01-03] MEDS: BELLADONNA ALKALOIDS 60 ML ML PO (21:17)
[2025-01-03 21:32] VITALS: PULSE 80
[2025-01-03 21:34] VITALS: BP 156/90; PULSE 80; RESP 18; TEMP 37; O2SAT 100
--- NOTE | 2025-01-03 21:35 | PC.NURSE ---
IV discontinued. Catheter tip intact. Bleeding controlled.
== END 2025-01-03 21:36 | disposition home or self-care (01) ==
PROVIDERS: Nurse Practitioner; Emergency Provider Student in an Organized Health Care Education/Training Program; PCP Nurse Practitioner Family
DX: R07.9 Chest pain, unspecified (principal); K21.9 Gastro-esophageal reflux disease without esophagitis; R11.0 Nausea; F17.200 Nicotine dependence, unspecified, uncomplicated
CPT/HCPCS: 71045; 80053; 84484; 85025; 93005; 99284